=== PATIENT | female | born 1980 | race Caucasian/White ===

== ENCOUNTER 2017-04-30 12:20 | Inpatient (IN) | payer OTHER ==
[~2017-04-30] VITALS: Ht 165.1 cm; Wt 105.2 kg
--- NOTE | 2017-04-30 12:55 | NUR ---
PT C/O MIDDLE BACK PAIN SINCE APPROX 1130. PT RPEORTS FEELING TIGHTNESS TO BACK AT APPROX 0900 WHEN ARRIVING AT WORK, PT THEN REPORTS WALKING "NORMALLY" DOWN FLIGHT UP STAIRS AT WHICH TIME PT STS THAT SHE FELFT "CHILLS" AND A FEELING OF NOT BEING ABLE TO BREATH, PT REPORTS BENDING OVER AND FINDING RELIEF OF BACK PAIN AND EASE OF BREATHING. AT THIS TIME, PT REPORTS INABLILTY TO STAND AND IS IN ROOM LEANING OVE WITH UPPER BODY RESTING ON GURNEY AND FEET ON GROUND. PT DENIES FALL, TWISTING, OR HEAVY LIFTING. PT IS AAOX4, RESP EVEN AND UNLABORED, RA. SPEAKNG IN FULL SENTENSES AND DENEIS SOB AT THIS TIME. DENIES CHEST PAIN. DENEIS PAIN TO EXTREMITIES, HEAD OR NECK. DENIES N/V/D DENIES UTIS SYMPTOMS OR FLANK PAIN. DENIES LOWER BACK PAIN.
--- NOTE | 2017-04-30 13:00 | NUR ---
MSE COMPLETED BY DR BRICEÑO
[2017-04-30 13:19] LABS: BASOPHIL % 0.4 % (0-2); PLATELET COUNT 273 x10^3mcL (130-400)
[2017-04-30 13:28] LABS: RED CELL DISTRIBUTION WIDTH 14.8 % (11.5-14.5)
--- NOTE | 2017-04-30 13:45 | NUR ---
MEDICATED WITH MS/ZOFRAN,URINE SENT TO LAB
[2017-04-30 14:21] LABS: UA SPECIFIC GRAVITY 1.025 (1.005-1.035); microscopic required? YES; urine erythrocyte NEGATIVE (NEGATIVE)
--- NOTE | 2017-04-30 14:28 | NUR ---
PT IN STABLE CONDITION. RESP EVEN AND UNLABORED, RA. REPORTS PAIN AHS DECREASED TO 5/10. PT NOTED TO BE ABLE TO RAISE BODY HIGHER THAN EARLIER
--- NOTE | 2017-04-30 14:37 | NUR ---
DR BRICEÑO AT BEDSIDE SPEAKING TO PT
[2017-04-30 14:38] LABS: CALCIUM 8.8 mg/dL (8.5-10.1); CARBON DIOXIDE 23.2 mmol/L (21-32); CHLORIDE SERUM 107 mmol/L (98-107); CREATININE SERUM 0.8 mg/dL (0.6-1.0); GFR1 > 60 mL/min; GLUCOSE SERUM 90 mg/dL (74-106); POTASSIUM SERUM 4.4 mmol/L (3.5-5.1); SODIUM SERUM 139 mmol/L (136-145)
--- NOTE | 2017-04-30 14:40 | NUR ---
PT INFORMED DR BRICEÑO THAT SHE IS NOW EXPERIENCING PAIN TO ABD BUQ
[2017-04-30 14:43] LABS: ALBUMIN 3.5 g/dL (3.4-5.0); ALKALINE PHOSPHATASE 61 U/L (46-116); ALT/SGPT 51 U/L (14-59); AST/SGOT 27 U/L (15-37); BILIRUBIN TOTAL 0.3 mg/dL (0.20-1.00); TOTAL PROTEIN, SERUM 7.5 g/dL (6.4-8.2); URIC ACID 4.1 mg/dL (2.6-6.0)
[2017-04-30 15:04] LABS: AMYLASE 77 U/L (25-115); LIPASE 104 IU/L (73-393)
--- NOTE | 2017-04-30 15:23 | NUR ---
PT IN STABLE CONDITION. PT NOW LYING ON BED AND REPORTS PAIN IS AT 1/10. RESP EVEN AND UNLABORED, RA. VS STABLE. NAD NOTED.
--- NOTE | 2017-04-30 15:40 | NUR ---
TECH AT BEDSIDE FOR GB ULTRASOUND
--- NOTE | 2017-04-30 15:55 | NUR ---
PT TAKEN FOR CT SC[facility]
--- NOTE | 2017-04-30 16:37 | NUR ---
PT IN STABLE CONDITION. RESP EVEN AND UNLABORED, RA. VS STABLE. NAD NOTED. DENEIS PAIN
--- NOTE | 2017-04-30 16:52 | NUR ---
REPORT GIVEN TO DEEPTHI PACHECO IN [facility] FOR CONTIONUITY OF CARE
[2017-04-30 17:09] LABS: T3 TOTAL 1.43 ng/mL
--- NOTE | 2017-04-30 17:10 | NUR ---
RECEIVED PT VIA EMILIA FROM ER. ABLE TO AMBULATE FROM DOORWAY TO 208A WITH ASSIST. MADE COMFORTABLE IN BED. ORIENT TO ROOM AND CALL LIGHT SYSTEM.ALERT X3. SPEECH CLEAR. DENIES HEADACHE OR DIZZINESS. LAYING FLAT IN BED WITH HOB ELEVATED SLIGHTLY. REPORTS "PAIN RIGHT NOW IF I DONT MOVE 1/10. SOME TIGHTNESS IN BACK." MOVES ALL EXTREMITIES. TELE #22 PLACED SINUS RHYTHM. DENIES CHEST DISCOMFORT. RESP 18. NO SOB OR DISTRESS. PULSE OX 98% RA. VOIDING QS. DENIES BURNING OR FREQUENCY. SALINE LOCK RAC PATENT. SIDE RAILS UP X2. CALL LIGHT IN REACH. DEEPTHI RN AT BEDSIDE FOR ADMISSION ASSESSMENT. LAB AT BEDSIDE TO DRAW BLOOD CULTURES. SIDE RAILS UP X2. CALL LIGHT IN REACH.
[2017-04-30 17:20] LABS: CHOLESTEROL/HDL RATIO 4.2; MAGNESIUM 2.1 mg/dL (1.8-2.4); PHOSPHOROUS 3.3 mg/dL (2.5-4.9)
[2017-04-30 17:21] LABS: AMPHETAMINE QUAL UR NONE DETECTED (NEG <=1000)
[2017-04-30 17:25] VITALS: BP 110/68
--- NOTE | 2017-04-30 17:28 | NUR ---
RECEIVED PT FROM ED VIA [facility]. ORIENTED PT TO ROOM AND SURROUNDINGS. IV NOTED TO RAC PATENT AND INTACT .TELE 22 PLACED ON PT READING NSR. INSTRUCTED PT ON THE USE OF CALL LIGHT FOR ASSISTANCE. ENDORSED PT TO PRIMARY NURSE ISABELLE
--- NOTE | 2017-04-30 17:40 | NUR ---
DR ARNETT IN TO SPEAK WITH PT AND FAMILY. IVF NORMAL SALINE STARTED AT 100CC/HR. WILL CONTINUE TO MONITOR.
[2017-04-30 17:48] LABS: FREE THYROXINE INDEX 4.2 ug/dL (1.4-4.5); T4(THYROXINE) 12.3 ug/dL (4.7-13.3)
[2017-04-30 17:49] LABS: FREE T4 1.25 ng/dL (0.76-1.46)
--- NOTE | 2017-04-30 19:45 | NUR ---
PT LAYING IN BED. AOX4. APPEARS SLIGHTLY DROWSY, BUT VERBAL WITH CLEAR SPEECH. DENIES ANY DIZZINESS OR NAUSEA AT THIS TIME. LUNGS CLEAR BILATERALLY. NO S/S OF RESPIRATORY DISTRESS NOTED. ON TELE 22, NSR WITH DEPRESSED T. DENIES ANY CHEST PAIN. SKIN WARM AND DRY. IV TO RIGHT FA PATENT AND INTACT. IV NS INFUSING WELL. NO S/S OF INFECTION NOTED. NO EDEMA NOTED. PULSES PALPABLE. PT C/O 5/10 MID BACK PAIN. PRN TORADOL 30 MG IVP GIVEN. CALL LIGHT WITHIN REACH. SPOUSE AT BEDSIDE. WILL CONTINUE TO MONITOR.
[2017-04-30 21:11] VITALS: BP 102/63
--- NOTE | 2017-05-01 00:34 | NUR ---
PT RESTING IN BED WITH EYES CLOSED. BREATHING EQUAL AND UNLABORED. NO S/S OF RESPIRATORY DISTRESS NOTED. IV PATENT AND INFUSING WELL. NO S/S OF DISTRESS NOTED. CALL LIGHT WITHIN REACH. WILL CONTINUE TO MONITOR.
--- NOTE | 2017-05-01 05:20 | NUR ---
PT SLEPT WELL THROUGH THE NIGHT. AWAKE AND ALERT. PT C/O SHOOTING BACK PAIN 03/28. PRN TORADOL 30 MG IVP GIVEN. IV PATENT AND INFUSING WELL. BREATHING EQUAL AND UNLABORED. NO S/S OF RESPIRATORY DISTRESS NOTED. CALL LIGHT WITHIN REACH. WILL CONTINUE TO MONITOR.
[2017-05-01 05:29] VITALS: BP 105/62
[2017-05-01 06:47] LABS: BASOPHIL % 0.2 % (0-2); PLATELET COUNT 229 x10^3mcL (130-400)
[2017-05-01 06:53] LABS: RED CELL DISTRIBUTION WIDTH 14.6 % (11.5-14.5)
[2017-05-01 07:30] LABS: CALCIUM 7.9 mg/dL (8.5-10.1); CARBON DIOXIDE 22.7 mmol/L (21-32); CHLORIDE SERUM 107 mmol/L (98-107); CREATININE SERUM 0.7 mg/dL (0.6-1.0); GFR1 > 60 mL/min; GLUCOSE SERUM 113 mg/dL (74-106); MAGNESIUM 2.1 mg/dL (1.8-2.4); POTASSIUM SERUM 4.5 mmol/L (3.5-5.1); SODIUM SERUM 138 mmol/L (136-145)
--- NOTE | 2017-05-01 08:11 | NUR ---
PT A+OX4, COMPLAINING OF DISCOMFORT, DECLINES PAIN MEDS AT THIS TIME, TELE 22, PULSES MODERATE AND EQUAL, NO EDEMA PRESENT, LUNG SOUNDS CLEAR, TOLERATING ROOM AIR, BOWEL SOUNDS ACTIVE, VOIDING, GENERALIZED WEAKNESS, AMBULATORY, SKIN INTACT, IV IN RAC WITH NS @ 100 ML/HR, SITE WNL, HGB 11.7, HCT 35, CA 7.9, AMMONIA< 10.
[2017-05-01 09:28] VITALS: BP 104/59
--- NOTE | 2017-05-01 11:31 | NUR ---
PT RESTING IN BED, NO RESPIRATORY DISTRESS NOTED, STATES PAIN IS TOLERABLE.
--- NOTE | 2017-05-01 12:28 | NUR ---
PT RESTING IN BED, NO RESPIRATORY DISTRESS NOTED, STATES PAIN IS TOLERABLE AT THIS TIME.
[2017-05-01 12:56] VITALS: BP 100/56
--- NOTE | 2017-05-01 13:32 | NUR ---
PT RESTING IN BED, NO RESPIRATORY DISTRESS NOTED, STATES PAIN IS TOLERABLE AT THIS TIME.
--- NOTE | 2017-05-01 14:21 | NUR ---
PT IN SEVERE PAIN AFTER TAKING A SHOWER, TORADOL GIVEN.
--- NOTE | 2017-05-01 14:42 | NUR ---
PT ASSISTED BACK TO BED FROM CHAIR, STATES PAIN IS IMPROVING.
--- NOTE | 2017-05-01 15:50 | NUR ---
PT WENT OFF UNIT TO CT SCAN AND NOW BACK ON UNIT, STATES PAIN HAS DECREASED, NO RESPIRATORY DISTRESS NOTED.
--- NOTE | 2017-05-01 16:22 | NUR ---
PT RESTING IN BED, NO RESPIRATORY DISTRESS NOTED, IN NO APPARANT PAIN.
[2017-05-01 17:08] VITALS: BP 105/65
--- NOTE | 2017-05-01 17:45 | NUR ---
PT RESTING IN BED, NO RESPIRATORY DISTRESS NOTED, STATES PAIN IS TOLERABLE AT THIS TIME.
--- NOTE | 2017-05-01 19:30 | NUR ---
PT A/O X4 ACCOMPANIED BY FAMILY AT BEDSIDE. MED-SURG, NO TELE, PT DENIES CHEST PAIN. PULSES PALPABLE, NO EDEMA NOTED. LUNG SOUNDS CTA, BREATHING FREELY ON RA, NO RESP DISTRESS OBSERVED. ABD SOFT AND NONDISTENDED, BOWEL SOUNDS ACTIVE. PT REPORTS LAST BM-04/29. PT STATES SHE NORMALLY HAS 3 BMs/DAY. PT VOIDS ADEQUATELY AND HAS BRP. WEAKNESS TO BACK, AMBULATORY WITHOUT ASSIST. SKIN INTACT. NS INFUSING TO RAC @ 100 ML/HR. PT ADMITS TO 2/10 TOLERABLE BACK PAIN. BED IN LOWEST SETTING, SIDE RAILS UP X2, CALL LIGHT WITHIN REACH. WILL CONTINUE TO MONITOR.
--- NOTE | 2017-05-01 20:50 | NUR ---
PT'S IV TO RAC IS LEAKING. IV DC'd, CATHETER INTACT. NEW IV INSERTED BY RESOURCE NURSE TO RFA, 22G. IVF INFUSING WELL @ 100 ML/HR.
[2017-05-01 21:01] VITALS: BP 112/60
--- NOTE | 2017-05-02 03:10 | NUR ---
PT ASLEEP AT THIS TIME, BUT IS EASILY AROUSABLE. BREATHING IS EVEN AND UNLABORED, NO RESP DISTRESS NOTED. NO SIGNS OF PAIN OBSERVED. IVF INFUSING WELL. WILL CONTINUE TO MONITOR.
[2017-05-02 05:39] VITALS: BP 94/55
--- NOTE | 2017-05-02 07:01 | NUR ---
PT SLEPT WELL THROUGHOUT THE NIGHT WITH NO COMPLAINTS OF PAIN. NO RESP DISTRESS OBSERVED. K-PAD AT BEDSIDE. WILL ENDORSE CARE TO AM NURSE.
[2017-05-02 07:56] VITALS: BP 115/80
--- NOTE | 2017-05-02 08:34 | NUR ---
AAOX4 ABLE TO VERBALIZE NEEDS WITH CLEAR SPEECH, C/O BACK PAIN 12/27, DECLINED PAIN MED AT THIS TIME, ACTIVE BOWEL SOUNDS X4 QUADS, LBM 04/29/17 FORMED, DENIES RECENT TRAUMA, PALPABLE PERIPHERAL PULSES, IV AT RFA INFUSING NS AT 100MG, CALL LIGHT WITHIN REACH, WILL CONTINUE TO PROVIDE CARE.
--- NOTE | 2017-05-02 10:07 | NUR ---
SITTING UP IN BED, ABLE TO TAKE ALL PO MEDS WITHOUT GI DISTRESS, WILL CONTINUE TO PROVIDE CARE.
--- NOTE | 2017-05-02 11:01 | NUR ---
PHYSICAL THERAPY AT BEDSIDE TO EVAL PATIENT.
[2017-05-02 13:37] VITALS: BP 123/75
--- NOTE | 2017-05-02 14:14 | NUR ---
PATIENT VERBALIZED WISHES TO LEAVE THE HOSPITAL NO LATER THAN 1700, SHE IS "WORRIED ABOUT BILLS RACKING UP," DR ARNETT IS AWARE AND WILL SPEAK WITH PATIENT.
[2017-05-02] MEDS ORDERED: CYCLOBENZAPRINE5 MG PO (17:22)
[2017-05-02] MEDS ORDERED: COL100 PO (17:23)
[2017-05-02] MEDS ORDERED: APAP/HYDROCODON1 T13 PO (17:23)
[2017-05-02 17:24] VITALS: BP 114/69
[2017-05-02] MEDS ORDERED: CIPRO250 MG PO (17:25)
[2017-05-02] MEDS ORDERED: LAC PO (17:27)
[2017-05-02 17:59] VITALS: BP 114/69
--- NOTE | 2017-05-02 19:20 | NUR ---
REVIEWED DISCHARGE INSTRUCTIONS WITH PATIENT INCLUDING CALLING PCP ON 05/03/17 IN THE MORNING TO SCHEDULE FOLLOW UP APPOINTMENT, PATIENT VERBALIZED UNDERSTANDING OF DISCHARGE INSTRUCTIONS. IV D/C'D, CATH TIP INTACT, NO BLEEDING OR PHLEBITIS NOTED, COVERED WITH BANDAID. PATIENT ASSISTED DOWNSTAIRS VIA WHEELCHAIR BY SPECIAL NEEDS CAREGIVER AND .
== END 2017-05-02 19:00 | disposition home or self-care (01) | DRG 552 ==
LOC: ED 12:20 → MU 16:26 → DU 16:26 → MU 05-01 17:19
PROVIDERS: Emergency Medicine; ADMIT Family Medicine
DX: M54.14 Radiculopathy, thoracic region (principal); K76.0 Fatty (change of) liver, not elsewhere classified; E66.9 Obesity, unspecified; Z53.29 Procedure and treatment not carried out because of patient's decision for other reasons; Z68.38 Body mass index [BMI] 38.0-38.9, adult
CPT/HCPCS: 83880; 84439; 97110-GP; J0696; J1885; J2060; J2270; J7030; J7512; Q0092; Q0162